=== PATIENT | female | born 1995 | race Hispanic/Latino ===

== ENCOUNTER 2021-06-29 09:32 | Day surgery (SDC) | payer OTHER ==
[2021-06-27 14:07] VITALS: BMI 27.3
[2021-06-29] MEDS ORDERED: Lidocaine 1% MPF 2 ML VIAL ONE (10:06)
[2021-06-29] MEDS ORDERED: Acetaminophen 500 MG TAB ONE (10:18)
[2021-06-29] MEDS ORDERED: ceFAZolin 2 GM/DEX 5% 100 ML BAG ONE (10:34)
[2021-06-29] MEDS ORDERED: Bupivacaine PF 0.5% 30 ML VIAL ONE (10:57)
[2021-06-29] MEDS ORDERED: Ondansetron PF 4 MG/2 ML Vial ONE (11:25)
[2021-06-29] MEDS ORDERED: Lidocaine 1% PF 5 ML VIAL ONE (11:25)
[2021-06-29] MEDS ORDERED: Dexamethasone 20 MG/5 ML VIAL ONE (11:25)
[2021-06-29] MEDS ORDERED: Rocuronium Bromide 10 MG/ML (10ML VIAL) ONE (11:25)
[2021-06-29] MEDS ORDERED: PROPOFOL 20 ML ONE (11:25)
[2021-06-29] MEDS ORDERED: Fentanyl 100 MCG/2 ML VIAL ONE (11:25)
[2021-06-29] MEDS ORDERED: Glycopyrrolate 0.2 MG/ML 5 ML SYRINGE ONE (11:25)
[2021-06-29] MEDS ORDERED: Midazolam HCl 2 mg/2 ml Vial ONE (11:41)
[2021-06-29] MEDS ORDERED: HYDROmorphone 0.5 MG/0.5 ML SYRINGE ONE ×2 (11:55→13:40)
[2021-06-29] MEDS ORDERED: PHENYLEPHRINE-NS 100 MCG/ML 10 ML SYRINGE ONE (12:34)
[2021-06-29] MEDS ORDERED: EPINEPHrine 1 MG/ML AMP ONE (13:50)
[2021-06-29] MEDS ORDERED: Ketorolac Tromethamine 30 MG/ML VIAL ONE (13:58)
== END 2021-06-29 18:20 | disposition home or self-care (01) ==
LOC: CSHSDC 09:32
PROVIDERS: ATTEND Obstetrics & Gynecology
PROC: 0UDB8ZX Extraction of Endometrium, Via Natural or Artificial Opening Endoscopic, Diagnostic (ICD-10-PCS; principal; 2021-06-29)
PROC: 0UN98ZZ Release Uterus, Via Natural or Artificial Opening Endoscopic (ICD-10-PCS; principal; 2021-06-29)
PROC: 10D18ZZ Extraction of Products of Conception, Retained, Via Natural or Artificial Opening Endoscopic (ICD-10-PCS; principal; 2021-06-29)
PROC: 0DNM4ZZ Release Descending Colon, Percutaneous Endoscopic Approach (ICD-10-PCS; principal; 2021-06-29)
DX: O03.4 Incomplete spontaneous abortion without complication (principal); N84.0 Polyp of corpus uteri; Q51.10 Doubling of uterus with doubling of cervix and vagina without obstruction; Q42.8 Congenital absence, atresia and stenosis of other parts of large intestine; N73.6 Female pelvic peritoneal adhesions (postinfective); G43.909 Migraine, unspecified, not intractable, without status migrainosus; E03.9 Hypothyroidism, unspecified; Z79.899 Other long term (current) drug therapy; Z20.822 Contact with and (suspected) exposure to COVID-19; Q52.10 Doubling of vagina, unspecified; Q51.820 Cervical duplication
CPT/HCPCS: 88305; J0171; J1100; J1170; J1885; J2250; J2405; J2704; J3010; S0020; U0003; U0005